=== PATIENT | male | born 1985 | race Two or more races ===

== ENCOUNTER 2017-07-31 15:23 | Emergency (ER) | payer OTHER ==
--- NOTE | 2017-07-31 15:56 | EDPHY ---
H & P Stated Complaint: R sided numbness Time Seen by Provider: 07/31/17 15:56 HPI/ROS: CHIEF COMPLAINT: Paresthesia left hand, arm and face HISTORY OF PRESENT ILLNESS: The patient presents the ED with complaints of paresthesias to his left hand arm and face. The patient reports that he developed the symptoms yesterday. The patient did have a mild headache last night which has resolved. He denies any photophobia. He denies any history of fall or trauma. He denies any neck pain or history of chiropractic manipulation. The patient has no significant past medical history. He states his symptoms have improved throughout the day. The patient denies any fever, cough or congestion. He denies any chest pain, shortness of breath or palpitations. He denies any weight loss, excessive urination or thirst. REVIEW OF SYSTEMS: A comprehensive 10 point review of systems is otherwise negative aside from elements mentioned in the history of present illness. Source: Patient Exam Limitations: No limitations - Personal History Current Tetanus/Diphtheria Vaccine: Unsure - Medical/Surgical History Hx Asthma: No Hx Chronic Respiratory Disease: No Hx Diabetes: No Hx Cardiac Disease: No Hx Renal Disease: No Hx Cirrhosis: No Hx Alcoholism: No Hx HIV/AIDS: No Hx Splenectomy or Spleen Trauma: No Other PMH: denies - Social History Smoking Status: Never smoked - Physical Exam Exam: General Appearance: Alert, no distress Eyes: Pupils equal and round no pallor or injection ENT, Mouth: Mucous membranes moist Neck: No carotid bruit Respiratory: There are no retractions, lungs are clear to auscultation Cardiovascular: Regular rate and rhythm Gastrointestinal: Abdomen is soft and nontender, no masses, bowel sounds normal Neurological: Alert and oriented x4, 5/5 strength all 4 extremities, sensation intact to light touch although subjectively decreased in the left arm and face, normal cerebellar exam noted Skin: Warm and dry, no rashes Musculoskeletal: Neck is supple nontender Extremities: symmetrical, full range of motion Constitutional: Initial Vital Signs Temperature (C) 37.2 C 07/31/17 15:28 Heart Rate 84 07/31/17 15:28 Respiratory Rate 16 07/31/17 15:28 Blood Pressure 134/78 H 07/31/17 15:28 O2 Sat (%) 97 07/31/17 15:28 O2 Delivery Mode Room Air Allergies/Adverse Reactions: No Known Allergies Allergy (Unverified 07/31/17 15:28) Home Medications: Medication Instructions Recorded Multivitamin (*) 07/31/17 Medical Decision Making - Diagnostics Imaging Results: Brain MRI with contrast: Images reviewed by myself and discussed with radiologist Dr. Degroot. Impression: Normal brain MRI. ED Course/Re-evaluation: ED course: The patient presents to the ED for evaluation of slight right-sided paresthesias today. The patient was noted to be neurologically intact. His sensation was intact to light touch. The patient had significantly improved symptoms prior to arrival. He had no complaints of weakness. He arrives with an NIH stroke scale is 0. The patient has no risk factors for a carotid artery injury and has no complaints of neck pain. The patient was taken for an MRI of his brain which demonstrates no evidence of stroke, tumor or hemorrhage. Patient did have a mild headache earlier in the day. I suspect that this is a migraine variant that he has experienced this afternoon. The patient is comfortable being discharged home. He has no significant comorbidities. The patient has requested follow-up with a primary care provider and has been given the contact number of our on-call primary care provider. Additionally the patient is given the contact number of our on-call neurologist should he continue to have any ongoing mild paresthesias. The patient is instructed to return to the ED for markedly worsening symptoms, the development of new neurologic symptoms or other concerns. Differential Diagnosis: Differential diagnosis considered includes migraine variant, stroke, TIA, carotid artery dissection, [employer] MACHINIST tumor, demyelinating illness - Data Points Laboratory Results: Laboratory Results 07/31/17 15:56 07/31/17 15:56 07/31/17 07/31/17 15:56 15:56 WBC 7.39 10^3/uL 10^3/uL (3.80-9.50) RBC 5.54 10^6/uL 10^6/uL (4.40-6.38) Hgb 16.3 g/dL g/dL (13.7-17.5) Hct 47.0 % % (40.0-51.0) MCV 84.8 fL fL (81.5-99.8) MCH 29.4 pg pg (27.9-34.1) MCHC 34.7 g/dL g/dL (32.4-36.7) RDW 12.0 % % (11.5-15.2) Plt Count 278 10^3/uL 10^3/uL (150-400) MPV 10.8 fL fL (8.7-11.7) Neut % (Auto) 56.3 % % (39.3-74.2) Lymph % (Auto) 35.9 % % (15.0-45.0) Foster % (Auto) 6.4 % % (4.5-13.0) Eos % (Auto) 0.8 % % (0.6-7.6) Baso % (Auto) 0.3 % % (0.3-1.7) Nucleat RBC Rel Count 0.0 % % (0.0-0.2) Absolute Neuts (auto) 4.17 10^3/uL 10^3/uL (1.70-6.50) Absolute Lymphs (auto) 2.65 10^3/uL 10^3/uL (1.00-3.00) Absolute Monos (auto) 0.47 10^3/uL 10^3/uL (0.30-0.80) Absolute Eos (auto) 0.06 10^3/uL 10^3/uL (0.03-0.40) Absolute Basos (auto) 0.02 10^3/uL 10^3/uL (0.02-0.10) Absolute Nucleated RBC 0.00 10^3/uL 10^3/uL (0-0.01) Immature Gran % 0.3 % % (0.0-1.1) Immature Gran # 0.02 10^3/uL 10^3/uL (0.00-0.10) Sodium 141 mEq/L mEq/L (135-145) Potassium 4.2 mEq/L mEq/L (3.3-5.0) Chloride 103 mEq/L mEq/L (97-110) Carbon Dioxide 26 mEq/l mEq/l (22-31) Anion Gap 12 mEq/L mEq/L (8-16) BUN 18 mg/dL mg/dL (7-23) Creatinine 1.1 mg/dL mg/dL (0.7-1.3) Estimated GFR > 60 Glucose 97 mg/dL mg/dL (70-100) Calcium 9.7 mg/dL mg/dL (8.5-10.4) Departure - Departure Disposition: Home, Routine, Self-Care Clinical Impression: Paresthesia, Migraine variant Condition: Good Instructions: Paresthesia (ED) Additional Instructions: 1. Please follow up with our neurologist Dr. Pisano for any ongoing mild sensations of numbness. 2. You have been given the contact number of our on-call primary care provider Dr. Randy Ramos. 3. Please return to the ED for any worsening neurologic symptoms, severe headache, weakness, difficulty with speech or walking. Referrals: Richard Pisano DO [Medical Doctor] - As per Instructions Randy Ramos MD [[facility] [place] Primary Care Provider] - As per Instructions
[2017-07-31 16:10] LABS: PLATELET COUNT 278 10^3/uL (150-400)
[2017-07-31 17:12] VITALS: BP 134/79
== END 2017-07-31 17:12 | disposition home or self-care (01) ==
DX: R20.2 Paresthesia of skin (principal); G43.819 Other migraine, intractable, without status migrainosus